=== PATIENT | male | born 1990 | race Caucasian/White ===

== ENCOUNTER 2017-10-11 20:47 | Emergency (ER) | payer OTHER ==
[~2017-10-11] VITALS: Ht 188 cm; Wt 88.5 kg
[2017-10-11 21:00] VITALS: BP 136/78
[2017-10-11] MEDS ORDERED: LIDOCAINE 1% INJ 50 ML MDV IJ ONE (22:30)
[2017-10-11] MEDS ORDERED: LIDOCAINE HCL/PF 1% 30 ML SDV ONE (22:48)
[2017-10-11] MEDS ORDERED: TDAP [DIPH/PERTUSSIS/TET] 0.5 ML VIAL IM ONE ×2 (22:48→23:00)
[2017-10-11] MEDS ORDERED: LIDOCAINE HCL/PF 1% 30 ML VIAL TP ONE (23:00)
--- NOTE | 2017-10-11 23:22 | NUR ---
WOUND CLEANED AND BACITRACIN APPLIED BY MARTITA MURPHY.
[2017-10-11] MEDS ORDERED: BACI/NEOM/POLY B OINT PKT 1 UDPKT PACKET TP ONE (23:30)
== END 2017-10-11 23:24 | disposition home or self-care (01) ==
LOC: ER 20:50
DX: S01.01XA Laceration without foreign body of scalp, initial encounter (principal); F17.200 Nicotine dependence, unspecified, uncomplicated; W22.8XXA Striking against or struck by other objects, initial encounter; Y93.18 Activity, surfing, windsurfing and boogie boarding; Y92.89 Other specified places as the place of occurrence of the external cause; Y99.8 Other external cause status
CPT/HCPCS: 90715; A4606; A6402; J3490; Z7610